=== PATIENT | male | born 1990 | race Caucasian/White ===

== ENCOUNTER 2019-01-07 11:04 | Emergency (ER) | payer BC ==
[~2019-01-07] VITALS: Ht 185.4 cm; Wt 86.2 kg
[2019-01-07 11:10] VITALS: BP 126/88
[2019-01-07] MEDS ORDERED: ULTRAM 50MG TAB50 MG PO (12:04)
== END 2019-01-07 12:09 | disposition home or self-care (01) ==
LOC: ER 11:04
DX: S93.601A Unspecified sprain of right foot, initial encounter (principal); W22.8XXA Striking against or struck by other objects, initial encounter; Y93.89 Activity, other specified; Y92.89 Other specified places as the place of occurrence of the external cause; Y99.8 Other external cause status